=== PATIENT | male | born 1995 | race Caucasian/White ===

== ENCOUNTER 2022-06-20 08:11 | Outpatient (CLI) | payer BC, SELFPAY | END 2022-06-20 08:12 | disposition home or self-care (01) | LOC: INJ CL 08:15 | PROVIDERS: PCP Family Medicine; Visit Provider Family Medicine | DX: M54.16 Radiculopathy, lumbar region (principal); M51.26 Other intervertebral disc displacement, lumbar region | CPT/HCPCS: 64483; J1100; Q9966 ==

== ENCOUNTER 2022-08-08 13:32 | Outpatient (CLI) | payer BC, SELFPAY ==
--- NOTE | 2022-08-08 13:45 | CRLHL7_ITS ---
For Patients: As a result of the Century Cures Act, medical imaging exams and procedure reports are released immediately into your electronic medical record. You may view this report before your referring provider. If you have questions, please contact your health care provider. INDICATION: Lumbar radiculopathy. TECHNIQUE : Lumbar spine MRI without contrast. The following sequences were obtained: Sagittal T1, T2 weighted and STIR sequences. Axial T1 and T2 weighted sequences. COMPARISON: Lumbar spine radiographs from 07/10/2022. FINDINGS : Five lumbar type vertebral bodies, with the last fully formed disc space designated as L5-S1. Normal lumbar lordotic curve. No recent compression fracture or marrow replacing process. Lower cord/conus signal is normal. The conus terminates at a normal location. No intradural lesion. No extraspinal soft tissue abnormalities. Discs/Endplates: At L4-5 and L5-S1, mild disc height loss and disc desiccation. Normal disc height and signal elsewhere. Multiple scattered small Schmorl`s node deformities. Findings at individual levels as follows: T12-L1: No spinal canal or neural foraminal stenosis. L1-2: No spinal canal or neural foraminal stenosis. L2-3: No spinal canal or neural foraminal stenosis. L3-4: No spinal canal or neural foraminal stenosis. L4-5: A broad-based central to right subarticular disc extrusion measuring 9 millimeters in AP dimension exhibits 7 millimeters caudal migration below the interspace. Moderately advanced spinal canal stenosis and right subarticular recess stenosis with herrera impingement of the traversing right L5 nerve root. No significant neural foraminal stenosis. L5-S1: A broad-based right central disc protrusion flattens the thecal sac and minimally contacts the traversing S1 nerve roots without impingement. Mild spinal canal stenosis and mild bilateral neural foraminal stenosis. Imaged SI joints: Bilateral SI joint arthrosis. Imaged sacrum: Within normal limits. IMPRESSION: 1. At L4-5, moderately advanced spinal canal stenosis and right subarticular recess stenosis from broad-based central to right subarticular disc extrusion with caudal migration. Herrera impingement of the traversing right L5 nerve root. 2. At L5-S1, a broad-based right central protrusion minimally contacts the traversing S1 nerve roots without impingement. 3. No spinal canal/neural foraminal stenosis or impingement of neural structures elsewhere. Dictated by Jorge Fernandez MD @ 08/08/2022 3:56:54 PM (Electronically Signed)
== END 2022-08-08 13:33 | disposition home or self-care (01) ==
LOC: MRI 13:33
PROVIDERS: PCP Family Medicine; Visit Provider Orthopaedic Surgery Orthopaedic Surgery of the Spine
DX: M51.16 Intervertebral disc disorders with radiculopathy, lumbar region (principal); M51.27 Other intervertebral disc displacement, lumbosacral region
CPT/HCPCS: 72148

== ENCOUNTER 2022-08-23 23:51 | Emergency (ER) | payer BC, SELFPAY ==
[2022-08-24 00:07] VITALS: BP 128/83; PULSE 121; RESP 18; TEMP 37.8; O2SAT 96; BMI 44.4
--- NOTE | 2022-08-24 00:16 | ED_ITS ---
HPI - General Adult General Time Seen by Provider: 00:16 Date Seen: 08/24/22 Chief complaint: Post Op Complication Stated complaint: post op pain from back surgery Time Seen by Provider: 08/24/22 00:16 Source: patient, RN notes reviewed and old records reviewed Mode of arrival: ambulatory Limitations: no limitations History of Present Illness HPI narrative: 27-year-old male who comes in today for postoperative pain. Patient had with sounds like diskectomy on August 22, has had pain since. Pain is around the surgical site, worse with movement although constant. He has been taking oxycodone 5 mg every 4 hours but increased to 10 mg with his last dose. Is occasional numbness in his foot when he sits which he had prior to his procedure, but no bowel or bladder incontinence, does have difficulty with urination but only because his difficult for him to go to the bathroom. No fever home. No lightheadedness. Denies cough, chest pain, abdominal pain. Had a small bowel movement today. Prior surgical records from August 22 personally reviewed by me show patient had a right L4-5 hemilaminectomy and diskectomy Related Data Home Medications Medication Instructions Recorded Confirmed gabapentin 300 mg capsule 900 mg PO .bedtime 08/24/22 08/24/22 oxycodone 5 mg tablet 5 mg PO Q4H PRN 08/24/22 08/24/22 Previous Rx's Medication Instructions Recorded methylprednisolone 4 mg tablets in See Rx Instructions PO .COMPLEX 08/24/22 a dose pack (Medrol ([place])) #21 ea Allergies Allergy/AdvReac Type Severity Reaction Status Date / Time cefprozil [From Cefzil] Allergy Verified 06/20/22 08:46 diphenhydramine Allergy Verified 06/20/22 08:46 [From Benadryl] Review of Systems Status of ROS: Reports: 10 or more systems reviewed and unremarkable except as noted in History and below PFSH PFSH Social History Smoking Status: Never smoker Do you use any of these nicotine containing products: None Second hand tobacco smoke exposure: No How often do you have a drink containing alcohol: never How often do you have six or more drinks on one occasion: Never AUDIT-C Alcohol total score: 0 Non-prescribed substance use: denies use service: No Exam Narrative: Exam Narrative: General: Well-developed and well-nourished, no acute distress Head: Atraumatic and normocephalic Eyes: Pupils are equal reactive, extraocular motions intact, conjunctiva clear ENT: External nose and ears are normal, posterior pharynx without erythema or exudate Neck: No midline cervical tenderness, full spontaneous range of motion the neck, trachea midline, no adenopathy Heart: Tachycardic but regular Lungs: Clear to auscultation bilaterally without wheezes or crackles Abdomen: Soft, nontender, nondistended with active bowel sounds Musculoskeletal: Lumbar incision dressing in place, incision is clean dry and intact with Steri-Strips in place Neurologic: Awake, alert, and oriented x3, no gross focal neurologic deficits, cranial nerves intact as tested Psych: Mood and affect are appropriate Skin: No rashes Const: Vital Signs, click to edit/add: Vital Signs - 24 hr 08/24/22 00:07 08/24/22 01:33 08/24/22 01:43 Temperature 100.1 F H Pulse Rate [Pulse Oximeter] 121 H 120 H 117 H Respiratory Rate 18 16 Blood Pressure [Le ft Upper Arm] 128/83 139/80 Pulse Oximetry 96 96 98 Oxygen Delivery Me thod Room Air Room Air 08/24/22 02:09 08/24/22 02:42 08/24/22 03:12 Temperature 99.4 F Pulse Rate [Pulse Oximeter] 122 H 122 H 111 H Respiratory Rate 16 16 16 Blood Pressure [Le ft Upper Arm] 141/67 H 112/68 Pulse Oximetry 98 98 98 Oxygen Delivery Me thod Room Air Room Air Room Air Course Course Hospital Course: Patient seen examined, prior records reviewed including surgical record from August 22. Patient presents today with back pain after surgery. On exam, he is tachycardic and temperature is slightly elevated. Lungs are clear, no cough or shortness of breath although atelectasis or postoperative pneumonia/pneumonitis possible. No abdominal tenderness, denies urinary symptoms, urinary tract infection possible source of elevated temperature and so this will be checked. Incision is clean dry and intact with Steri-Strips in place, no surrounding erythema although tenderness around the area. Postop day 2 is a little bit early for postoperative infection but CT scan of the lumbar will be ordered. Patient denies bowel or bladder incontinence, some tingling in the right foot which he had prior to surgery, no saddle anesthesia or worsening lower extremity radicular or neuropathy symptoms to suggest spinal hematoma or epidural abscess. Dilaudid IV is ordered. Reevaluation(s) Reevaluation #1: Labs independently interpreted by me demonstrate leukocytosis, also slightly elevated CRP which is not unexpected postoperatively. Urinalysis is negative, basic panel is reassuring. Chest x-ray independently interpreted by me does not demonstrate any acute findings. Additional IV fluids are ordered, radiology interpretation of lumbar spine CT is pending. Time: 02:06 Reevaluation #2: CT scan of the lumbar spine with endplate spurring and facet arthrosis resulting in mild residual spinal cord stenosis, no other acute findings are postoperative fluid collection. Patient recheck, remains tachycardic but appears little bit more comfortable. Patient with postoperative pain, as well as elevated temperature, tachycardia. Labs with leukocytosis and elevation CRP, urinalysis negative for signs of infection, chest x-ray negative. Concern for postoperative infection, no cough or shortness of breath, no chest pain to suggest atelectasis or pulmonary embolism, chest x-ray is negative. No abdominal pain or tenderness. No urinary symptoms and urinalysis negative. Incision is intact with no surrounding erythema or purulent drainage. CT scan of the lumbar spine is not demonstrate any fluid collection. No source for infection is found, will discuss with patient's surgeon as he may need MRI which cannot be done tonight that this facility. Time: 02:28 Reevaluation #3: Care discussed with [facility]. Agrees that timing is unusual for postoperative infection and no evidence for epidural hematoma given patient's neurologically intact. Will complete CT scans of the chest, abdomen, pelvis to evaluate for other source of tachycardia and leukocytosis. If this is reassuring, patient can be discharged with Medrol Dosepak and follow-up with surgery as an outpatient. Time: 02:36 Additional Reevaluation(s): 3:[address] scan of the chest independently interpreted by me does not demonstrate acute pulmonary embolism or infiltrate CT scan of the abdomen and pelvis independently interpreted by me does not demonstrate any acute intra- abdominal findings, there is some stranding in the soft tissue of the lumbar spine consistent with recent surgery but again, no fluid collection noted. Lactate reassuring at 1.4. Patient is stable for discharge. 3:35 a[address] interpretation of CT chest, abdomen, and pelvis agrees with my initial interpretation playing Vital Signs Vital signs: Initial Vital Signs Temperature 100.1 F H 08/24/22 00:07 Temperature Source Temporal Artery Scan 08/24/22 00:07 Pulse Rate 121 H 08/24/22 00:07 Pulse Rhythm Regular 08/24/22 00:07 Respiratory Rate 18 08/24/22 00:07 Blood Pressure 128/83 08/24/22 00:07 Blood Pressure Mean 98 08/24/22 00:07 Pulse Oximetry 96 08/24/22 00:07 Oxygen Delivery Method Room Air 08/24/22 00:07 Vital Signs Temperature 100.1 F H 08/24/22 00:07 Pulse Rate 121 H 08/24/22 00:07 Respiratory Rate 18 08/24/22 00:07 Blood Pressure 128/83 08/24/22 00:07 Pulse Oximetry 96 08/24/22 00:07 Oxygen Delivery Method Room Air 08/24/22 00:07 Temperature 99.4 F 08/24/22 02:09 Pulse Rate 111 H 08/24/22 03:12 Respiratory Rate 16 08/24/22 03:12 Blood Pressure 112/68 08/24/22 03:12 Pulse Oximetry 98 08/24/22 03:12 Oxygen Delivery Method Room Air 08/24/22 03:12 Medical Decision Making Medical Records Medical records reviewed: Yes I reviewed the patient's medical records Lab Data Lab results reviewed: Yes I reviewed the patient's lab results Labs: Lab Results 08/24/22 08/24/22 08/24/22 Range/Units 00:55 01:20 02:20 WBC 15.24 H (4.50-11.00) K/uL RBC 4.95 (4.30-5.90) m/uL Hgb 14.0 (13.5-17.5) gm/dL Hct 41.9 (37.0-53.0) % MCV 85 (80-100) fL MCH 28 (26-34) pg MCHC 33 (32-36) gm/dL RDW Coeff of [place]bey 12.6 (11.5-15.5) % Plt Count 298 (140-440) K/uL Neut % (Auto) 68.7 (42.0-72.0) % Lymph % (Auto) 20.0 (20-44) % [place] % (Auto) 10.5 (0.0-11.0) % Eos % (Auto) 0.4 (0.0-7.0) % Baso % (Auto) 0.1 (0.0-3.0) % Neut # (Auto) 10.50 H (1.7-7.0) K/uL Lymph # (Auto) 3.00 H (0.90-2.90) K/uL [place] # (Auto) 1.60 H (0.00-0.90) K/UL Eos # (Auto) 0.10 (0.00-0.50) K/uL Baso # (Auto) 0.00 (0.00-0.30) K/uL Sodium 136 (135-149) mmol/L Potassium 4.1 (3.6-5.1) mmol/L Chloride 104 (96-114) mmol/L Carbon Dioxide 23 (20-32) mmol/L BUN 11 (5-24) mg/dL Creatinine 0.7 (0.5-1.5) mg/dL Estimated Creat Clear 143.04 Estimated GFR 130 ml/min Glucose 108 (60-115) mg/dL Lactate 1.4 (0.5-1.9) mmol/L Calcium 9.1 (8.4-10.6) mg/dL C-Reactive Protein 4.0 H (0.5-1.0) mg/dL Urine Color Yellow (Yellow) Urine Appearance Clear (Clear) Urine pH 5.5 (5.0-8.5) Ur Specific [place] 1.015 (1.000-1.030) Urine Protein Negative (Negative) Urine Glucose (UA) Negative (Negative) Urine Ketones Negative (Negative) Urine Blood Negative (Negative) Urine Nitrite Negative (Negative) Urine Bilirubin Negative (Negative) Urine Urobilinogen 0.2 (0.2-1.0) Ur Leukocyte Esterase Negative (Negative) Urine RBC 0-2 (0-2) Urine WBC 0-2 (0-5) Ur Squamous Epith Cells Few (None-Few) Urine Bacteria None (None) Discharge Plan Discharge Clinical Impression: Postoperative back pain, Tachycardia Patient Disposition: Home, Self-Care Condition: Stable Instructions: Pain Management (ED), Opioid Safety (ED) Additional Instructions: Continue oxycodone. Start steroid as prescribed. Call to follow-up with your surgeon in the morning. Activity Level: Activity as Tolerated Discharge Diet: Regular Prescriptions: New methylprednisolone [Medrol ([place])] 4 mg tablets,dose pack See Rx Instructions .ROUTE .COMPLEX Qty: 21 0RF Rx Instructions: orally per package directions No Action gabapentin 300 mg capsule 900 mg PO .bedtime oxycodone 5 mg tablet 5 mg PO Q4H PRN Follow Up/Referrals: Thang Montesinos MD [Primary Care Provider] - Stand Alone Forms: [employer] Info Instructions
--- NOTE | 2022-08-24 00:30 | CRLHL7_ITS ---
For Patients: As a result of the Century Cures Act, medical imaging exams and procedure reports are released immediately into your electronic medical record. You may view this report before your referring provider. If you have questions, please contact your health care provider. Indication: POST OP PAIN FOLLOWING L4-5 DISCETOMY Technique: Noncontrast axial CT of the lumbar spine with coronal and sagittal reformats are provided. Comparison: MRI 08/08/2022. Findings: Lumbar lordosis is preserved. Slight retrolisthesis at L4-5. No fractures. No aggressive osseous lesion. Postoperative changes of right hemilaminectomy and discectomy at L4-5 level. No postoperative fluid collection identified. Small focus of expected gas posterior to the right facet joint. T12-L1: No significant spinal canal stenosis or neural foramen narrowing. L1-2: No significant spinal canal stenosis or neural foramen narrowing. L2-3: No significant spinal canal stenosis or neural foramen narrowing. L3-4: No significant spinal canal stenosis or neural foramen narrowing. L4-5: Slight retrolisthesis. Right hemilaminectomy. Posterior endplate osteophytic spurring and facet arthrosis results in mild residual spinal canal stenosis. Mild neural foramen narrowing bilaterally. L5-S1: Moderate interspace narrowing. Disc osteophyte complex results in mild spinal canal narrowing. Moderate facet arthrosis. Mild neural foramen narrowing bilaterally. Impression: 1. No fractures. Stable slight retrolisthesis at L4-5. 2. Postoperative changes of right hemilaminectomy and discectomy at L4-5 level. 3. At L4-5 there are postoperative changes with posterior endplate osteophytic spurring and facet arthrosis resulting in mild residual spinal canal narrowing and bilateral neural foramen narrowing. 4. At L5-S1, disc osteophyte complex and moderate facet arthrosis results in mild spinal canal and bilateral neural foramen narrowing. Please note that all CT scans at this facility use dose modulation, iterative reconstruction, and/or weight-based dosing when appropriate to reduce radiation dose to as low as reasonably achievable. Dictated by Teja Phoenix MD @ 08/24/2022 2:14:02 AM (Electronically Signed)
--- NOTE | 2022-08-24 00:30 | CRLHL7_ITS ---
For Patients: As a result of the Century Cures Act, medical imaging exams and procedure reports are released immediately into your electronic medical record. You may view this report before your referring provider. If you have questions, please contact your health care provider. INDICATION: Postop pain. TECHNIQUE: Chest 2 view. COMPARISON: None. FINDINGS: Cardiovascular and mediastinum: Heart size and vasculature are normal in caliber and appearance. Lungs and pleural spaces: Lungs are clear. No sign of infiltrate or mass. No sign of pleural effusion. No pneumothorax. Bones and soft tissues: No significant findings. IMPRESSION: Unremarkable chest. Dictated by Daniel López MD @ 08/24/2022 1:51:27 AM (Electronically Signed)
[2022-08-24] MEDS: 0.9 % SODIUM CHLORIDE 1000 ml 1,000 ML IV ×2 (00:54→02:13)
[2022-08-24] MEDS: HYDROmorphone 0.5 mg/0.5 ml inj IVP ×2 (00:55→02:13)
[2022-08-24] MEDS: ONDANSETRON 2 MG/ML inj 4 MG IVP (00:55)
[2022-08-24 00:59] LABS: Basophils Percent Auto 0.1 % (0.0-3.0); Eosinophils Percent Auto 0.4 % (0.0-7.0); Hematocrit 41.9 % (37.0-53.0); Immature Granulocytes Pct Auto 0.3 %; Mean Corpuscular HGB Conc 33 gm/dL (32-36); Mean Corpuscular Hemoglobin 28 pg (26-34); Mean Corpuscular Volume 85 fL (80-100); Monocytes Percent Auto 10.5 % (0.0-11.0); Neutrophils Percent Auto 68.7 % (42.0-72.0); Platelet Count* 298 K/uL (140-440); RDW Coefficient of Variation % 12.6 % (11.5-15.5); Red Blood Count 4.95 m/uL (4.30-5.90); White Blood Count* 15.24 K/uL (4.50-11.00)
[2022-08-24 01:01] LABS: Slide Review Reflex No
[2022-08-24 01:11] LABS: Chloride* 104 mmol/L (96-114); Sodium* 136 mmol/L (135-149)
[2022-08-24 01:12] LABS: Potassium* 4.1 mmol/L (3.6-5.1)
[2022-08-24 01:15] LABS: Blood Urea Nitrogen* 11 mg/dL (5-24); Carbon Dioxide* 23 mmol/L (20-32); Creatinine* 0.7 mg/dL (0.5-1.5); Est. Creatinine Clearance* 143.04; Estimated Glomerular Filt Rate 130 ml/min
[2022-08-24 01:16] LABS: Calcium* 9.1 mg/dL (8.4-10.6); Glucose* 108 mg/dL (60-115)
[2022-08-24 01:29] LABS: Appearance Urine Clear (Clear); Bilirubin Urine Negative (Negative); Blood Urine Negative (Negative); Color Urine Yellow (Yellow); Glucose Urine Negative (Negative); Ketones Urine Negative (Negative); Leukocyte Esterase Urine Negative (Negative); Nitrite Urine Negative (Negative); Protein Urine Negative (Negative); Specific Gravity Urine 1.015 (1.000-1.030); Urobilinogen Urine 0.2 (0.2-1.0); pH Urine 5.5 (5.0-8.5)
[2022-08-24 01:33] VITALS: BP 139/80; PULSE 120; RESP 16; O2SAT 96
[2022-08-24 01:38] LABS: RBC Urine 0-2 (0-2); Squamous Epithelial Cell Urine Few (None-Few); WBC Urine 0-2 (0-5)
--- NOTE | 2022-08-24 01:42 | ED.NURSE ---
Pre bladder scan was 241ml. Patient was able to void 250ml. Urine sample collected. Post void bladder scan was 5ml. Patient was able to ambulate to and from the restroom. Continues to have increased pain when changing positions from lying to sitting to standing.
[2022-08-24 01:43] VITALS: PULSE 117; O2SAT 98
[2022-08-24 02:09] VITALS: BP 141/67; PULSE 122; RESP 16; TEMP 37.4; O2SAT 98
--- NOTE | 2022-08-24 02:32 | CRLHL7_ITS ---
For Patients: As a result of the Century Cures Act, medical imaging exams and procedure reports are released immediately into your electronic medical record. You may view this report before your referring provider. If you have questions, please contact your health care provider. INDICATION: Postoperative pain. COMPARISON: None available. TECHNIQUE: CT examination of the abdomen and pelvis was performed with the uneventful intravenous administration of Isovue 370 as part of the accompanying CT pulmonary angiogram while 3 mm thick axial sections were obtained from the lung bases through the pubic symphysis. Oral contrast was not administered. Please note that all CT scans at this facility use dose modulation, iterative reconstruction, and/or weight-based dosing when appropriate to reduce radiation dose to as low as reasonably achievable. FINDINGS: In the abdomen, the liver is low in density, representing fatty infiltration. There is no sign of mass. The spleen, pancreas and adrenals are normal in appearance. The kidneys are normal in appearance. The gallbladder is normal in appearance. The abdominal aorta is normal in caliber with no sign of dilatation. There is no sign of retroperitoneal mass or adenopathy. The stomach, loops of small bowel, and colon in the abdomen are normal in appearance. In the pelvis, the appendix is nonvisualized, but there is no sign of an inflammatory process in the area of the appendix. The loops of small bowel, colon, and rectum in the pelvis are normal in appearance. The prostate is normal in appearance. The urinary bladder is mildly distended and is otherwise normal in appearance. There is no sign of pelvic or inguinal mass or adenopathy. There is no sign of free air or free fluid in the abdomen or pelvis. The lung bases are clear. There is moderate L4-5 and L5-S1 disc degenerative disease. There is a mild diffuse disc bulging and posterior osteophytic ridging which may result in spinal stenosis. There are changes of right laminectomy at L4-5. IMPRESSION: The nothing seen to explain the patient`s abdominal pain. No sign of bowel distention or inflammatory process involving the bowel. Normal appearance of the pancreas. CT of the abdomen shows fatty infiltration of the liver. Normal CT of the pelvis with contrast. Moderate L4-5 and L5-S1 disc degenerative disease with mild diffuse disc bulging and posterior osteophytic ridging which could result in spinal stenosis. Please note that all CT scans at this facility use dose modulation, iterative reconstruction, and/or weight-based dosing when appropriate to reduce radiation dose to as low as reasonably achievable. Dictated by Rao Lam MD @ 08/24/2022 3:31:51 AM (Electronically Signed)
--- NOTE | 2022-08-24 02:32 | CRLHL7_ITS ---
For Patients: As a result of the Century Cures Act, medical imaging exams and procedure reports are released immediately into your electronic medical record. You may view this report before your referring provider. If you have questions, please contact your health care provider. INDICATION: Postoperative pain. History of L4-5 discectomy. COMPARISON: None available. TECHNIQUE: CT examination of the chest was performed with the uneventful intravenous administration of 135 cc of Isovue 370 while 1.5 mm thick axial sections were obtained from above the apices of the lungs through the mid renal level. Please note that all CT scans at this facility use dose modulation, iterative reconstruction, and/or weight-based dosing when appropriate to reduce radiation dose to as low as reasonably achievable. FINDINGS: : There is suboptimal enhancement of the pulmonary arteries, with the densest portion of the contrast bolus in the thoracic aorta. Today`s study is diagnostic. There is no sign of pulmonary embolism, with normal enhancement and branching of the pulmonary arteries. The lungs are clear with no sign of significant infiltrate or mass. There is no sign of mediastinal or hilar mass or adenopathy. The heart is normal in appearance for the patient`s age. There is age appropriate appearance of the thoracic aorta and ascending great vessels. There is no sign of supraclavicular or axillary mass or adenopathy. The visualized superior liver is low in density representing fatty infiltration. The rest of the liver is normal in appearance. The visualized superior spleen, pancreas, kidneys, and adrenals are normal in appearance. The osseous structures are normal in appearance for the patient`s age. IMPRESSION: No sign of pulmonary embolism. Normal CT of the chest with contrast. Fatty infiltration of the liver. Please note that all CT scans at this facility use dose modulation, iterative reconstruction, and/or weight-based dosing when appropriate to reduce radiation dose to as low as reasonably achievable. Dictated by Rao Lam MD @ 08/24/2022 3:24:24 AM (Electronically Signed)
[2022-08-24 02:34] LABS: Lactate* 1.4 mmol/L (0.5-1.9)
[2022-08-24] MEDS: ACETAMINOPHEN 500 MG TABLET 1000 MG PO (02:34)
[2022-08-24 02:42] VITALS: PULSE 122; RESP 16; O2SAT 98
[2022-08-24] MEDS: GABAPENTIN 300 MG CAPSULE 600 MG PO (03:07)
[2022-08-24] MEDS: dexAMETHasone 4 MG/ML VIAL 10 MG IV (03:08)
[2022-08-24 03:12] VITALS: BP 112/68; PULSE 111; RESP 16; O2SAT 98
== END 2022-08-24 03:51 | disposition home or self-care (01) ==
PROVIDERS: Emergency Provider Family Medicine; PCP Family Medicine
DX: G89.18 Other acute postprocedural pain (principal); M54.9 Dorsalgia, unspecified
CPT/HCPCS: 36415; 71046; 71260; 72131; 74177; 80048; 81001; 83605; 85025; 86140; 87040; 96374; 96375; 99284; 99285; A9270; J1100; J1170; J2405; J7030; Q9967